=== PATIENT | female | born 1995 | race Caucasian/White ===

== ENCOUNTER 2016-08-01 08:47 | Emergency (ER) | payer SELFPAY ==
[~2016-08-01] VITALS: Ht 157.5 cm; Wt 61.0 kg
[2016-08-01 09:08] VITALS: Ht 157.5 cm; Wt 61.0 kg
[2016-08-01] MEDS ORDERED: HYDR-906 PO (10:53)
[2016-08-01] MEDS ORDERED: CYCL-319 PO (10:53)
[2016-08-01] MEDS ORDERED: NAPR-260 PO (10:53)
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
== END 2016-08-01 10:59 | disposition home or self-care (01) ==
LOC: FTE 08:47
DX: S49.92XA Unspecified injury of left shoulder and upper arm, initial encounter (principal); V43.52XA Car driver injured in collision with other type car in traffic accident, initial encounter
CPT/HCPCS: 99284